=== PATIENT | female | born 1985 | race Caucasian/White ===

== ENCOUNTER 2017-06-10 06:53 | Day surgery (SDC) | payer OTHER ==
[~2017-06-10] VITALS: Ht 162.6 cm; Wt 64.5 kg
[~2017-06-10 06:53] MED LIST: SODIUM CHLORIDE 0.9% 1,000 ML IV ONE
[2017-06-10] MEDS ORDERED: LIDOCAINE HCL 2% 5 ML JELLY TP ONE (06:54)
[2017-06-10] MEDS ORDERED: BENZOCAINE 20% 50 MCG/SPRAY 57 GM TP ONE (06:54)
[2017-06-10] MEDS ORDERED: LIDOCAINE HCL 4% 50 ML SOLUTION TP ONE (06:54)
[2017-06-10] MEDS ORDERED: ALBUTEROL SULFATE 2.5 MG/0.5 ML NEB SOLUTION NEB ONE (06:54)
[2017-06-10] MEDS ORDERED: SODIUM CHLORIDE 0.9% 1,000 ML IV ONE (07:11)
[2017-06-10] MEDS ORDERED: FLUT16H NASAL (07:42)
[2017-06-10] MEDS ORDERED: BECL8.7A7 IH (07:42)
[2017-06-10] MEDS ORDERED: FAMO20 PO (07:42)
[2017-06-10] MEDS ORDERED: MIDAZOLAM HCL 2 MG/2 ML VIAL ONE (07:55)
[2017-06-10] MEDS ORDERED: FentaNYL CITRATE-PF 100 MCG/2 ML VIAL ONE (07:55)
[2017-06-10] MEDS ORDERED: MethylPREDNISolone SOD SUCC 125 MG/2 ML VIAL IVP ONE (09:30)
[2017-06-10] MEDS ORDERED: MethylPREDNISolone SOD SUCC 125 MG/2 ML VIAL ONE (10:14)
[2017-06-10] MEDS ORDERED: OXYGEN THERAPY IH SCH (20:00)
== END 2017-06-10 11:15 | disposition home or self-care (01) ==
LOC: SURGERY 06:53
PROVIDERS: ATTEND Internal Medicine Critical Care Medicine
DX: J38.4 Edema of larynx (principal); B37.0 Candidal stomatitis; Z72.89 Other problems related to lifestyle; Z79.52 Long term (current) use of systemic steroids
CPT/HCPCS: 31623; 31624; 36415; 71045; 84703; 87015; 87070; 87205; 87220; 88108; 88312; J2250; J2930; J3010; J7030